=== PATIENT | male | born 1950 | race Caucasian/White ===

== ENCOUNTER → 2022-03-30 10:47 | Outpatient (CLI) | payer MEDICARE, SELFPAY ==
[2022-03-30 12:25] LABS: Add Manual Diff / Slide Review NO; Basophils Absolute Auto 100 /uL (0-100); Basophils Percent Auto 0.6 % (0-2); Eosinophils Absolute Auto 100 /uL (0-450); Eosinophils Percent Auto 1.4 % (2-4); Hematocrit 39.8 % (41-53); Hemoglobin 13.7 g/dL (13.5-17.5); Lymphocytes Absolute Auto 1700 /uL (1100-4500); Lymphocytes Percent Auto 17.9 % (25-40); Mean Corpuscular HGB Conc 34.3 % (30-36); Mean Corpuscular Hemoglobin 33.3 PG (26-34); Mean Corpuscular Volume 97.1 fL (80-100); Monocytes Absolute Auto 900 /uL (0-900); Monocytes Percent Auto 9.5 % (3-14); Neutrophils Absolute Auto 6700 /uL (1500-7000); Neutrophils Percent Auto 70.6 % (50-75); Platelet Count 254 X10^3/uL (150-400); Red Cell Distribution Width 13.7 % (11.6-14.8); White Blood Cell Count 9.5 X10^3/uL (4.5-11.0)
[2022-03-30 12:47] LABS: Digoxin 0.7 ng/mL (0.8-2.0)
[2022-03-30 12:48] LABS: Alanine Aminotransferase 17 IU/L (<50); Albumin 3.9 g/dL (3.5-5.0); Alkaline Phosphatase 55 U/L (38-126); Aspartate Aminotransferase 23 IU/L (17-59); BUN Creatinine Ratio 25.8 (6-22); Bilirubin Total 1.1 mg/dL (0.2-1.3); Blood Urea Nitrogen 23 mg/dL (9-20); Calcium 9.2 mg/dL (8.4-10.2); Carbon Dioxide 29 mmol/L (22-32); Chloride 98 mmol/L (98-107); Cholesterol 169 mg/dL (140-199); Estimated Glomerular Filt Rate > 60 mL/min (>60); Globulin 3.9 g/dL (1.7-4.1); Glucose 105 mg/dL (80-110); HDL Cholesterol 71 mg/dL (40-60); HEMOLYSIS < 15 (0-50); LDL Cholesterol Calculated 88 mg/dL (<100); Potassium 4.7 mmol/L (3.4-5.1); Sodium 137 mmol/L (137-145); Total Protein 7.8 g/dL (6.3-8.2); Triglycerides 50 mg/dL (35-150)
== END ==
PROVIDERS: PCP Family Medicine; Referring Provider Family Medicine; Visit Provider Family Medicine
DX: I50.9 Heart failure, unspecified; I48.91 Unspecified atrial fibrillation; Z12.5 Encounter for screening for malignant neoplasm of prostate
CPT/HCPCS: 36415; 80053; 80061; 80162; 85025

== ENCOUNTER → 2022-06-07 09:18 | Outpatient (CLI) | payer MEDICARE, SELFPAY ==
--- NOTE | 2022-06-07 09:19 | DI.ECHO.S_ITS ---
[facility] +---------+ [facility] +---------+ : : [address] : [place] : : : : [id number] : : : : Phone: [phone]+ Echocardiogram Report + + :Name: GURU LUNA Study Date: 06/07/2022 Height: 75.5 in: :[facility] ReadingLocation: Weight: 318 lb : : Gender: Male BSA: 2.7 m2 : :: 1950 Age: 71 yrs BP: 151/86 mmHg: :Reason For Study: CONGESTIVE HEART FAILURE : :Ordering Physician: BRUNO HUGHESPerformed By: Isha Can : :Referring: BRUNO HUGHES : + + Interpretation Summary The study quality was technically difficult. The ejection fraction is estimated to be 50-55%. There are no obvious focal wall motion abnormalities noted but poor endocardial definition reduces the sensitivity for the detection of such. The aortic valve is slightly calcified. The right ventricular systolic pressure is estimated to be at least 42 mmHg based on an estimated right atrial pressure of 15 mm Hg. Procedure: A two-dimensional transthoracic echocardiogram with color flow and Doppler was performed. Images from the parasternal window were difficult to obtain and are suboptimal in quality. There is no prior echocardiogram noted for this patient. The study quality was technically difficult. The patient was in atrial fibrillation with heart rates between 85-115 bpm during the exam. Left Ventricle: The left ventricle is borderline dilated. The estimated left ventricular end diastolic volume is 99 ml. The ejection fraction is estimated to be 50-55%. Septal motion is consistent with conduction abnormality. There are no obvious focal wall motion abnormalities noted but poor endocardial definition reduces the sensitivity for the detection of such. Right Ventricle: The right ventricle is mild to moderately dilated. The right ventricular systolic function is normal. Atria: The left atrium is severely dilated. The right atrium is severely dilated. There is no Doppler evidence for an interatrial shunt. Mitral Valve: The mitral valve leaflets appear mildly thickened, but open well. There is mild mitral annular calcification. There is trace mitral regurgitation. Aortic Valve: The aortic valve is slightly calcified. The aortic valve opens well. There is no aortic valve stenosis. No aortic regurgitation is present. Tricuspid Valve: The tricuspid valve is normal in structure and function. The right ventricular systolic pressure is estimated to be at least 42 mmHg based on an estimated right atrial pressure of 15 mm Hg. There is mild tricuspid regurgitation. Pulmonic Valve: The pulmonic valve is not well visualized. There is no pulmonic valvular regurgitation. Great Vessels: The aortic root is mildly dilated. The ascending aorta is moderately enlarged. The IVC is dilated (diameter is greater than 2.1 cm) and it collapses less than 50% with a sniff. This suggests a high right atrial pressure of 15 mm Hg. Pericardium/ Pleura There is a trace pericardial effusion that is circumferential. There is no pleural effusion. MMode/2D Measurements & Calculations LVIDd: 6.2 cm LVOT diam: 2.7 cm IVSd: 1.3 cm Ao root diam: 4.1 cm LVPWd: 1.2 cm asc Aorta Diam: 4.5 cm LV jean. diameter/BSA (cm/m^2): 2.3 Ao Arch Diam (Prox Trans): 3.2 cm LA A2 area: 45.2 cm2 RA long axis: 8.6 cm LA A4 area: 40.8 cm2 RA area: 42.3 cm2 LA length (vol): 8.6 cm RA vol: 177.1 ml LA vol: 181.3 ml RA : 65.9 ml/m2 LA vol index: 67.5 ml/m2 IVC diam: 2.1 cm RVD1 (basal): 4.7 cm RVD2 (mid): 3.9 cm TAPSE: 2.0 cm Doppler Measurements & Calculations Ao V2 max: 158.4 cm/sec LVOT Max Arron: 84.3 cm/sec Ao V2 mean: 110.6 cm/sec LV V1 max P.9 mmHg Ao max P.1 mmHg LV V1 VTI: 15.7 cm Ao mean P.5 mmHg MARY(I,D): 2.9 cm2 Ao V2 VTI: 30.8 cm MARY(V,D): 3.0 cm2 sev ratio: 0.51 MARY indexed to BSA (cm^2/m^2): 1.1 MV E max arron: 125.3 cm/sec TR max arron: 259.7 cm/sec MV A max arron: 1.3 cm/sec TR max P.0 mmHg MV E/A: 97.2 PA V2 max: 95.2 cm/sec Med Peak E' Arron: 7.3 cm/sec PA V2 mean: 67.7 cm/sec E/E' med: 17.2 PA mean P.0 mmHg Lat Peak E' Arron: 9.8 cm/sec PA pr(Accel): 27.6 mmHg E/E' lat: 12.8 E/e' average: 15.0 MV dec time: 0.14 sec MVA(VTI): 3.2 cm2 MV V2 mean: 76.8 cm/sec SV(LVOT): 89.3 ml MV mean P.9 mmHg MV V2 VTI: 27.5 cm Reading Physician:12:51 PM
== END ==
PROVIDERS: PCP Family Medicine; Referring Provider Family Medicine; Visit Provider Family Medicine
DX: I50.9 Heart failure, unspecified (principal); I08.1 Rheumatic disorders of both mitral and tricuspid valves; I77.810 Thoracic aortic ectasia; I77.89 Other specified disorders of arteries and arterioles
CPT/HCPCS: 93306

== ENCOUNTER → 2022-11-16 11:05 | Outpatient (CLI) | payer MEDICARE, SELFPAY ==
[2022-11-16 12:04] LABS: Add Manual Diff / Slide Review NO; Basophils Absolute Auto 0 /uL (0-100); Basophils Percent Auto 0.5 % (0-2); Eosinophils Absolute Auto 200 /uL (0-450); Eosinophils Percent Auto 1.8 % (2-4); Hematocrit 40.3 % (41-53); Hemoglobin 13.9 g/dL (13.5-17.5); Lymphocytes Absolute Auto 1600 /uL (1100-4500); Lymphocytes Percent Auto 16.4 % (25-40); Mean Corpuscular HGB Conc 34.5 % (30-36); Mean Corpuscular Hemoglobin 34.2 PG (26-34); Mean Corpuscular Volume 99.1 fL (80-100); Monocytes Absolute Auto 900 /uL (0-900); Monocytes Percent Auto 8.9 % (3-14); Neutrophils Absolute Auto 7000 /uL (1500-7000); Neutrophils Percent Auto 72.4 % (50-75); Platelet Count 255 X10^3/uL (150-400); Red Blood Cell Count 4.07 X10^6/uL (4.5-5.9); Red Cell Distribution Width 13.6 % (11.6-14.8); White Blood Cell Count 9.7 X10^3/uL (4.5-11.0)
[2022-11-16 12:15] LABS: Alanine Aminotransferase 17 IU/L (<50); Albumin 4.1 g/dL (3.5-5.0); Alkaline Phosphatase 51 U/L (38-126); Aspartate Aminotransferase 24 IU/L (17-59); BUN Creatinine Ratio 21.1 (6-22); Blood Urea Nitrogen 20 mg/dL (9-20); Carbon Dioxide 27 mmol/L (22-32); Chloride 101 mmol/L (98-107); Estimated Glomerular Filt Rate > 60 mL/min (>60); Glucose 108 mg/dL (80-110); HEMOLYSIS < 15 (0-50); Potassium 4.1 mmol/L (3.4-5.1); Sodium 135 mmol/L (137-145); Total Protein 8.1 g/dL (6.3-8.2)
[2022-11-16 12:44] LABS: Prostate Specific Antigen Scrn 0.951 ng/mL (0.1-4.0)
[2022-11-17 17:48] LABS: Hep C Virus Ab w/Reflex Quant NEGATIVE s/c (NEGATIVE)
== END ==
PROVIDERS: PCP Family Medicine; Referring Provider Family Medicine; Visit Provider Family Medicine
DX: I48.91 Unspecified atrial fibrillation (principal); Z12.5 Encounter for screening for malignant neoplasm of prostate; G47.33 Obstructive sleep apnea (adult) (pediatric); I10 Essential (primary) hypertension; I50.9 Heart failure, unspecified; Z99.89 Dependence on other enabling machines and devices; Z11.59 Encounter for screening for other viral diseases
CPT/HCPCS: 36415; 80053; 85025; 86803; G0103

== ENCOUNTER → 2023-07-03 11:47 | Outpatient (CLI) | payer MEDICARE, SELFPAY ==
[2023-07-03 13:04] LABS: Hemoglobin A1C% w Est Avg Glu 5.3 % (4.0-6.0)
[2023-07-03 13:22] LABS: Alanine Aminotransferase 16 IU/L (<50); Albumin 4.3 g/dL (3.5-5.0); Albumin Globulin Ratio 1.1 (1.0-2.8); Alkaline Phosphatase 41 U/L (38-126); Aspartate Aminotransferase 27 IU/L (17-59); BUN Creatinine Ratio 31.6 (6-22); Bilirubin Total 1.3 mg/dL (0.2-1.3); Blood Urea Nitrogen 31 mg/dL (9-20); Calcium 8.8 mg/dL (8.4-10.2); Carbon Dioxide 25 mmol/L (22-32); Chloride 103 mmol/L (98-107); Cholesterol 182 mg/dL (140-199); Estimated Glomerular Filt Rate > 60 mL/min (>60); Globulin 3.9 g/dL (1.7-4.1); Glucose 106 mg/dL (80-110); HDL Cholesterol 74 mg/dL (40-60); LDL Cholesterol Calculated 94 mg/dL (<100); Sodium 136 mmol/L (137-145); Total Protein 8.2 g/dL (6.3-8.2); Triglycerides 72 mg/dL (35-150)
[2023-07-03 14:05] LABS: HEMOLYSIS 66 (0-50); Potassium 4.6 mmol/L (3.4-5.1)
== END ==
PROVIDERS: PCP Family Medicine; Referring Provider Family Medicine; Visit Provider Family Medicine
DX: I10 Essential (primary) hypertension (principal); I50.9 Heart failure, unspecified; I48.91 Unspecified atrial fibrillation
CPT/HCPCS: 36415; 80053; 80061; 83036

== ENCOUNTER → 2023-08-28 10:33 | Outpatient (CLI) | payer MEDICARE, SELFPAY ==
--- NOTE | 2023-08-28 10:35 | DI.RAD.S_ITS ---
PROCEDURE: FL GUIDED ASPIRATION JOINT COMPARISON: None. INDICATIONS: Pain in right hip TECHNIQUE: An appropriate position for joint aspiration was picked under fluoroscopic guidance. The skin was sterilized. 1% lidocaine was injected along the tract. A spinal needle was utilized to access the joint. Approximately 2 mL of clear, right tinged fluid was obtained. FINDINGS: Approximately 2 mL of clear, right tinged fluid was obtained from the right total hip arthroplasty joint space. IMPRESSION: Successful right hip joint aspiration. Dictated by: Hardik Esquivel M.D. on 08/28/2023 at 14:38 Approved by: Hardik Esquivel M.D. on 08/28/2023 at 14:41
[2023-08-28] MEDS: SODIUM CHLORIDE 0.9 % 20 ML VIAL IV (11:20)
[2023-08-28] MEDS: LIDOCAINE 1% 20 ML INJ (11:20)
== END ==
LOC: RAD 10:35
PROVIDERS: PCP Family Medicine; Referring Provider Orthopaedic Surgery Adult Reconstructive Orthopaedic Surgery; Visit Provider Orthopaedic Surgery Adult Reconstructive Orthopaedic Surgery
DX: M25.551 Pain in right hip (principal); T84.038A Mechanical loosening of other internal prosthetic joint, initial encounter; Z96.643 Presence of artificial hip joint, bilateral
CPT/HCPCS: 20610; 77002; 87205; 87801

== ENCOUNTER → 2023-10-20 11:40 | Outpatient (CLI) | payer MEDICARE, SELFPAY ==
[2023-10-20 12:32] LABS: BUN Creatinine Ratio 30.7 (6-22); Blood Urea Nitrogen 35 mg/dL (9-20); Calcium 9.1 mg/dL (8.4-10.2); Carbon Dioxide 27 mmol/L (22-32); Chloride 103 mmol/L (98-107); Estimated Glomerular Filt Rate > 60 mL/min (>60); Glucose 111 mg/dL (80-110); HEMOLYSIS 21 (0-50); Potassium 4.2 mmol/L (3.4-5.1); Sodium 138 mmol/L (137-145)
== END ==
PROVIDERS: PCP Family Medicine; Referring Provider Family Medicine; Visit Provider Family Medicine
DX: Z00.00 Encounter for general adult medical examination without abnormal findings (principal); I11.0 Hypertensive heart disease with heart failure; I50.9 Heart failure, unspecified; I48.91 Unspecified atrial fibrillation; G47.33 Obstructive sleep apnea (adult) (pediatric); Z99.89 Dependence on other enabling machines and devices; I10 Essential (primary) hypertension
CPT/HCPCS: 36415; 80048

== ENCOUNTER → 2024-09-05 12:50 | Outpatient (CLI) | payer MEDICARE, SELFPAY ==
--- NOTE | 2024-09-05 12:54 | DI.ECHO.S_ITS ---
[facility] +---------+ Hospital : : [address] : : [place] : : [id number] : : Phone: [phone] Echocardiogram Report + + :Name: GURU LUNA Study Date: 09/05/2024 Height: 75 in : :Hospital ReadingLocation: Weight: 308 lb : : Gender: Male BSA: 2.6 m2 : :: 1950 Age: 73 yrs BP: 120/81 mmHg: :Reason For Study: CONGESTIVE HEART FAILURE, ATRIAL : :FIBRILLATION : :Ordering Physician: BRUNO HUGHESPerformed By: Isha Can : :Referring: BRUNO HUGHES : + + Interpretation Summary The left ventricle is normal in size. Left ventricular systolic function is mildly reduced. The ejection fraction is estimated to be 40-45%. LV ejection fraction has mildly reduced since 06/07/2022. Diastolic function could not be accurately assessed due to atrial fibrillation. The right ventricle is not well visualized. Right ventricular systolic function is at the lower limits of normal. Pulmonary artery pressures cannot be estimated because of the lack of a measurable TR jet velocity. The left atrium is severely dilated. The right atrium is severely dilated. The aortic root is mildly dilated. The ascending aorta is mild-moderately enlarged. No gross valvular abnormalities. Procedure: A two-dimensional transthoracic echocardiogram with color flow and Doppler was performed. Comparison is made with the echocardiogram of 06/07/2022. The study quality was technically difficult. Patient was scanned supine and in wheelchair. Unable to successfully transfer patient from chair to bed. The patient was in atrial fibrillation with heart rates between 74-105 bpm during the exam. Left Ventricle: The left ventricle is normal in size. Left ventricular wall thickness is mildly increased. Left ventricular systolic function is mildly reduced. The ejection fraction is estimated to be 40-45%. There are no obvious focal wall motion abnormalities noted but poor endocardial definition reduces the sensitivity for the detection of such. Diastolic function could not be accurately assessed due to atrial fibrillation. Right Ventricle: The right ventricle is not well visualized. The right ventricle is at the upper limits of normal in size. Right ventricular systolic function is at the lower limits of normal. Atria: The left atrium is severely dilated. The right atrium is severely dilated. There is no Doppler evidence for an interatrial shunt. Mitral Valve: The mitral valve leaflets appear mildly thickened, but open well. There is no mitral regurgitation noted. Aortic Valve: The aortic valve is trileaflet. The aortic valve opens well. There is no aortic valve stenosis. No aortic regurgitation is present. Tricuspid Valve: The tricuspid valve leaflets are thin and pliable. No tricuspid regurgitation. Pulmonary artery pressures cannot be estimated because of the lack of a measurable TR jet velocity. Pulmonic Valve: The pulmonic valve is not well visualized. There is no pulmonic valvular regurgitation. Great Vessels: The aortic root is mildly dilated. The ascending aorta is mild-moderately enlarged. The IVC is dilated (diameter is greater than 2.1 cm) yet it collapses greater than 50% with a sniff. This suggests a right atrial pressure of 8 mm Hg. Pericardium/ Pleura There is no pericardial effusion. There is no pleural effusion. MMode/2D Measurements & Calculations LVIDd: 5.5 cm LVOT diam: 2.5 cm LVIDs: 4.2 cm Ao root diam: 4.3 cm FS: 23.6 % asc Aorta Diam: 4.3 cm IVSd: 1.0 cm Ao Arch Diam (Prox Trans): 3.6 cm LVPWd: 1.2 cm LV jean. diameter/BSA (cm/m^2): 2.1 LV sys. diameter/BSA (cm/m^2): 1.6 LA A2 area: 39.2 cm2 RA long axis: 8.4 cm LA A4 area: 35.9 cm2 RA area: 42.5 cm2 LA length (vol): 8.1 cm RA vol: 183.3 ml LA vol: 146.8 ml RA : 69.5 ml/m2 LA vol index: 55.7 ml/m2 IVC diam: 2.3 cm RVD1 (basal): 4.4 cm TAPSE: 1.6 cm Doppler Measurements & Calculations Ao V2 max: 166.2 cm/sec LVOT Max Arron: 61.7 cm/sec Ao V2 mean: 119.5 cm/sec LV V1 max P.5 mmHg Ao max P.1 mmHg LV V1 VTI: 11.7 cm Ao mean P.3 mmHg MARY(I,D): 1.8 cm2 Ao V2 VTI: 32.5 cm MARY(V,D): 1.8 cm2 sev ratio: 0.36 MARY indexed to BSA (cm^2/m^2): 0.67 MV E max arron: 105.3 cm/sec PA V2 max: 79.0 cm/sec MV A max arron: 0.73 cm/sec PA V2 mean: 55.8 cm/sec MV E/A: 143.5 PA mean P.4 mmHg Med Peak E' Arron: 6.4 cm/sec PA pr(Accel): 27.6 mmHg E/E' med: 16.5 Lat Peak E' Arron: 12.0 cm/sec E/E' lat: 8.8 E/e' average: 12.7 MV dec time: 0.17 sec SV(LVOT): 57.5 ml Reading Physician:02:55 PM
== END ==
LOC: ECHO 12:53
PROVIDERS: PCP Family Medicine; Referring Provider Family Medicine; Visit Provider Family Medicine
DX: I77.89 Other specified disorders of arteries and arterioles (principal); I77.810 Thoracic aortic ectasia; I48.91 Unspecified atrial fibrillation; I50.9 Heart failure, unspecified
CPT/HCPCS: 93306